=== PATIENT | male | born 2000 | race Caucasian/White ===

== ENCOUNTER 2023-10-10 06:47 | Emergency (ER) | payer SELFPAY ==
[2023-10-10 06:50] VITALS: BP 139/91
[2023-10-10 07:46] LABS: COVID-19 Antigen Negative (Negative)
--- NOTE | 2023-10-10 08:21 | ED.GENMED ---
History of Present Illness
General
Chief Complaint: Cold/Flu/URI Symptoms
Source: patient
Exam Limitations: none
Time Seen by Provider: 10/10/23 08:11
Travel History
Have you had any contact with someone who has COVID-19?: No
Do you have any symptoms of coronavirus? Fever > 100 degrees, chills, cough, shortness of breath, sore throat, loss of taste or smell, muscle aches, or headache?: Yes
Symptoms:: see above
History of Present Illness
History of Present Illness:
See MDM
Past History
Past History
ED Past Medical History: GERD and Psychiatric
ED Past Surgical History: Orthopedic
Social History
Tobacco: Non-smoker
Alcohol: None
Drug: None
Personal: Single
Living: with family
Phy Exam
Physical Exam
Physical Exam:
See MDM
Course
Orders/Labs/Results
Orders:
Orders
10/10/23 06:56
COVID-19 Antigen Urgent
Source: Nasal Swab
Influenza A+B Rapid Molecular Urgent
MERCEDES Source: Nasal Swab
Specimen Description:
10/10/23 08:21
Dexamethasone Pf [Decadron] 10 mg PO NOW STA
Ipratropium/Albuterol Sulfate [Duoneb] 3 ml INH R NOW ONE
CR Chest - 2 Views Urgent
Comment:
Reason For Exam: Cough, SOB
Vital Signs
Initial and Last Documented VS:
Initial Vital Signs
Temp Pulse Resp BP Pulse Ox
98.4 F 100 18 139/91 96
10/10/23 06:50 10/10/23 06:50 10/10/23 06:50 10/10/23 06:50 10/10/23 06:50
Last Documented Vital Signs
Temp Pulse Resp BP Pulse Ox
98.4 F 100 18 139/91 96
10/10/23 06:50 10/10/23 06:50 10/10/23 06:50 10/10/23 06:50 10/10/23 06:50
MDM/Problems Addressed
Differential Diagnosis Includes:
HPI and MDM Narrative:
23-year-old male presenting with congestion and cough. This has been going on for the past 5 days or so. 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 He denies fevers. Patient complaining of bilateral ear pain
that has been going on for months.
On exam, he is well-appearing nontoxic. There is a evidence of nasal congestion. We discussed not treating sinusitis with antibiotics. Lungs are clear. He appears to have a bronchospastic cough. Will give dose of Decadron and DuoNeb and will
obtain chest x-ray
Physical exam
General: Well appearing and non-toxic
HEENT: protecting airway. Nasal congestion. TMs clear bilaterally
Neck: supple
CV: No evidence of cyanosis. Regular rate and
Resp: No accessory muscle use. Lungs clear
Abd: Non-distended
Extremities: No deformities
Neuro: alert
Psych: Normal affect
Skin: Intact
Problems Addressed including Acute and Chronic Conditions affecting care:
1. Viral syndrome
Acuity: acute
Prognosis: stable
Details: Given duration of symptoms, will obtain chest x-ray. Patient given DuoNeb and Decadron
Updates
Chest x-ray clear. Will avoid antibiotics. Will place on steroids and albuterol
Differential Diagnosis (but not limited to): Sinusitis, viral syndrome, pneumonia
Testing considered: Viral panel
Drug therapy (if applicable): OTC meds, please see d/c instruction regarding Rx drugs
Amount and/or Complexity of Data Reviewed
Clinical info obtained from: Patient
External data reviewed: N/A
Labs I independently reviewed (but not limited to): COVID and flu negative
Radiology: x-ray independently reviewed: Chest x-ray clear
Pulse Ox: not hypoxic
EKG independently reviewed: N/A
Business Office Representative: N/A
Critical Care: N/A
Risk of Complication:
Social Determinants of health: Good social support
Discussed with other providers: N/A
Escalation of Care includes Admit/Obs: After being observed in the Emergency Department, pt stable for discharge.
Occasional wrong word or 'sound a like' substitutions may have occurred due to the inherent limitations of voice recognition software. Read the chart carefully and recognize, using context, where substitutions have occurred.
*Critical Care Note
Total Time (30-74mins, 75-104mins- exclusive of procedures): Not Applicable
ED Attending Note
-
Portions of this chart may have been created with voice recognition software.� Occasional wrong word or��sound alike� substitutions may have occurred due to the inherent limitations of voice recognition software.
Discharge Plan
Departure
Patient Disposition: Home (Routine Discharge)
Date of Disposition: 10/10/23
Time of Disposition: 09:30
Patient with high blood pressure during this ER visit?: No
Discharge Problem:
Acute viral syndrome
Instructions: Viral Syndrome (DC)
Prescriptions:
New
albuterol sulfate [ProAir HFA] 90 mcg/actuation Hfa Aerosol Inhaler
1 puff INHALATION Q4HPRN PRN (Reason: shortness of breath) Qty: 8.5 0RF
prednisone 20 mg tablet
40 mg PO DAILY Qty: 10 0RF
No Action
cyclobenzaprine 10 MG tablet
10 mg PO TIDPRN PRN (Reason: spasm) Qty: 9 0RF
prednisone 10 mg Tablet
See Rx Instructions .ROUTE .COMPLEX Qty: 45 0RF
Rx Instructions:
Take By Mouth:
50 mg daily x3 days, 40 mg daily x3 days,
30 mg daily x3 days, 20 mg daily x3 days,
10 mg daily x3 days
diphenhydramine HCl [Benadryl] 25 mg capsule
50 mg PO TID PRN (Reason: allergy symptoms) Qty: 15 0RF
Referrals:
Alexa Almodovar MD [Family Provider] -
Stand Alone Forms: Return to Work
Activity Restrictions/Additional Instructions:
Please return for any worsening symptoms.
You may return at any time if you have further concerns.
Please follow up with your doctor at the first available appointment, preferably this week.
Thank you for choosing [facility].
Interventions
Interventions:
ED- Pulmonary Assessment Last Done: 10/10/23 08:37
[2023-10-10] MEDS: DECADRON 10 MG PO (08:56)
[2023-10-10] MEDS: DUONEB 3 ML INH (08:57)
[2023-10-10 09:35] VITALS: BP 129/75
== END 2023-10-10 09:52 | disposition home or self-care (01) ==
LOC: EMR 06:47
PROVIDERS: Emergency Medicine; EMERGENCY PHYSICIAN Student in an Organized Health Care Education/Training Program; FAMILY PHYSICIAN Family Medicine
DX: B34.9 Viral infection, unspecified (principal); K21.9 Gastro-esophageal reflux disease without esophagitis
CPT/HCPCS: 99283; 71046; 87502; 87811

== ENCOUNTER 2023-10-13 17:58 | Emergency (ER) | payer SELFPAY ==
[2023-10-13 18:03] VITALS: BP 150/89
--- NOTE | 2023-10-13 18:43 | ED.GENMED ---
History of Present Illness
General
Chief Complaint: Cold/Flu/URI Symptoms
Source: patient
Exam Limitations: none
Time Seen by Provider: 10/13/23 18:34
Travel History
Have you had any contact with someone who has COVID-19?: No
Do you have any symptoms of coronavirus? Fever > 100 degrees, chills, cough, shortness of breath, sore throat, loss of taste or smell, muscle aches, or headache?: No
History of Present Illness
History of Present Illness:
This is a 23 year old male that comes in with c/o viral syndrome. States that he was here three days ago and diagnosed with a viral illness. States that he was given off form work until tomorrow. States that he is still not feeling better and that
his body hurts, he has a sore throat and he feels hot and cold. States that he feels slightly SOB, nausea has had diarrhea and a headache. Denies any fever, chills, chest pain, abd pain, vomiting, dizziness, urinary burning.
Past History
Past History
ED Past Medical History: GERD, Hypercholesterolemia, Psychiatric (Anxiety, Depression) and Other (IBS, )
ED Past Surgical History: Orthopedic (Foot surgery, ) and Tonsilectomy
Social History
Tobacco: Smoker
Alcohol: None
Drug: None
Personal: Single
Living: with family
Employment: Employed
Review of Systems
Review of Systems
All Other Systems: ROS reviewed and negative except as documented in HPI and ROS
Constitutional: Denies fever or chills
EENT: Reports sore throat
Respiratory: Reports trouble breathing (Very slight)
Cardiac: Reports no symptoms; Denies chest pain
ABD/GI: Reports nausea and diarrhea; Denies abdominal pain or vomiting
: Reports no symptoms; Denies dysuria, frequency or urgency
Musculoskeletal: Reports no symptoms
Skin: Reports no symptoms
Neurological: Reports headache; Denies dizzy
Psychiatric: Reports no symptoms
Phy Exam
General Physical Exam
General Presentation: well appearing and no apparent distress
General age: appears stated age
General Skin: warm and dry
General Habitus: normal
General Mental: alert
General Hydration: appears well hydrated
ENT Exam
ENT Exam: TM's normal, pharynx normal and neck supple
Eye Exam
Eye Exam: EOMI
Cardiovascular Exam
Cardiovascular Exam: regular rate/rhythm and no murmur
Pulmonary Exam
Pulmonary Exam: lungs clear, no respiratory distress, no rales, chest non tender, no crackles, no rhonchi, no wheezing and no cough
Musculoskeletal Exam
Musculoskeletal Exam: full ROM
Skin Exam
Skin Exam: normal color, warm/dry, no rash and no petechia
Psychiatric Exam
Psychiatric Exam: normal mood/affect
Course
Orders/Labs/Results
Orders:
Orders
10/13/23 19:14
Rapid Strep Group A Urgent
MERCEDES Source: Throat/Pharynx
Specimen Description:
Date Specimen was Collected: 10/13/23
Time Specimen was Collected: 19:12
rapid strep negative.
Vital Signs
Initial and Last Documented VS:
Initial Vital Signs
Temp Pulse Resp BP Pulse Ox
98.2 F 95 18 150/89 94
10/13/23 18:03 10/13/23 18:03 10/13/23 18:03 10/13/23 18:03 10/13/23 18:03
Last Documented Vital Signs
Temp Pulse Resp BP Pulse Ox
98.2 F 95 18 150/89 94
10/13/23 18:03 10/13/23 18:03 10/13/23 18:03 10/13/23 18:03 10/13/23 18:03
MDM/Problems Addressed
Differential Diagnosis Includes:
Viral syndrome
MDM/Problems Addressed:
This is a 23 year old male that comes in with c/o not feeling any better. States that he was here 3 days ago and diagnosed with a viral illness. 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 State that he is not feeling
any better. States that he has body aches and a sore throat.
Will get Rapid strep. Explained to patient that he was negative for COVID and influenza. Will give patient off tomorrow and the he should be feeling better. Patient to increase his water intake to 8-8oz glasses daily. Use Ibuprofen for any body
aches. Follow up with the family doctor.
Chronic conditions affecting care:
NA
Acute Exacerbation and/or Progression of Chronic Illness:
NA
*Pulse Oximetry
Patient hypoxic: no
*EKG
Interpreted by ED Provider?: NA
Rate: EKG- N/A
*Business Banker Interpretation
Rate: Business Banker- N/A
*Critical Care Note
Total Time (30-74mins, 75-104mins- exclusive of procedures): Not Applicable
ED Attending Note
-
Portions of this chart may have been created with voice recognition software.� Occasional wrong word or��sound alike� substitutions may have occurred due to the inherent limitations of voice recognition software.
Discharge Plan
Departure
Patient Disposition: Home (Routine Discharge)
Date of Disposition: 10/13/23
Time of Disposition: 19:43
Patient with high blood pressure during this ER visit?: Yes
Condition: Good
Covid-19: Not Applicable
Discharge Problem:
Viral illness
Instructions: Viral Syndrome (DC), BLOOD PRESSURE
Prescriptions:
No Action
cyclobenzaprine 10 MG tablet
10 mg PO TIDPRN PRN (Reason: spasm) Qty: 9 0RF
prednisone 10 mg Tablet
See Rx Instructions .ROUTE .COMPLEX Qty: 45 0RF
Rx Instructions:
Take By Mouth:
50 mg daily x3 days, 40 mg daily x3 days,
30 mg daily x3 days, 20 mg daily x3 days,
10 mg daily x3 days
diphenhydramine HCl [Benadryl] 25 mg capsule
50 mg PO TID PRN (Reason: allergy symptoms) Qty: 15 0RF
albuterol sulfate [ProAir HFA] 90 mcg/actuation Hfa Aerosol Inhaler
1 puff INHALATION Q4HPRN PRN (Reason: shortness of breath) Qty: 8.5 0RF
prednisone 20 mg tablet
40 mg PO DAILY Qty: 10 0RF
Stand Alone Forms: Return to Work
Activity Restrictions/Additional Instructions:
As discussed, please increase your water intake to 8-8oz glasses daily. You may use Ibuprofen 600mg every 6 hours with food for body aches. Please stay away from milk and milk products as long as you have diarrhea as this will keep the diarrhea
going. Simple foods that are easily digested ar chicken, rice and potatoes. Bananas are also binding. Follow up with the family doctor. IF YOU HAVE ANY OTHER CONCERNS [facility]
Interventions
Interventions:
*Risk Screen - Suicide Last Done: 10/13/23 18:36
*General Assessment Last Done: 10/13/23 18:36
*Neglect/Abuse Screening Last Done: 10/13/23 18:36
ED- Fall Risk Assessment Last Done: 10/13/23 18:36
*ED COVID-19 Vaccine History Last Done: 10/13/23 19:15
ED- Pulmonary Assessment Last Done: 10/13/23 18:36
[2023-10-13 20:05] VITALS: BP 134/85
== END 2023-10-13 20:05 | disposition home or self-care (01) ==
LOC: EMR 17:58
PROVIDERS: EMERGENCY PHYSICIAN Student in an Organized Health Care Education/Training Program; FAMILY PHYSICIAN Family Medicine
DX: B34.9 Viral infection, unspecified (principal); R51.9 Headache, unspecified; R11.0 Nausea; R19.7 Diarrhea, unspecified; R03.0 Elevated blood-pressure reading, without diagnosis of hypertension; K21.9 Gastro-esophageal reflux disease without esophagitis; E78.00 Pure hypercholesterolemia, unspecified; K58.9 Irritable bowel syndrome, unspecified; F41.9 Anxiety disorder, unspecified; F32.A Depression, unspecified; F17.200 Nicotine dependence, unspecified, uncomplicated
CPT/HCPCS: 99283; 87070; 87880

== ENCOUNTER 2024-01-01 05:58 | Emergency (ER) | payer SELFPAY ==
[2024-01-01 06:00] VITALS: BP 140/87
--- NOTE | 2024-01-01 06:30 | ED.GENMED ---
History of Present Illness
General
Chief Complaint: Ear Problem
Source: patient
Exam Limitations: none
Time Seen by Provider: 01/01/24 06:15
Nursing documentation reviewed up to this point in time: agreed with
Travel History
Have you had any contact with someone who has COVID-19?: No
Do you have any symptoms of coronavirus? Fever > 100 degrees, chills, cough, shortness of breath, sore throat, loss of taste or smell, muscle aches, or headache?: No
History of Present Illness
History of Present Illness:
23-year-old male presents with right ear pain with ringing for the last 3 days. He states that the pain has been waxing and waning. He reports that jaw movement exacerbates the symptoms. Rest alleviates them. Denies fever, chills, nausea or
vomiting. Reports no chest pain or shortness of breath. Denies any recent head trauma.
Past History
Past History
ED Past Medical History: GERD, Hypercholesterolemia, Psychiatric (Anxiety, Depression) and Other (IBS, )
ED Past Surgical History: Orthopedic (Foot surgery, ) and Tonsilectomy
Social History
Tobacco: Smoker
Alcohol: None
Drug: None
Personal: Single
Living: with family
Employment: Employed
Review of Systems
Review of Systems
Allergies reviewed?: Yes
All Other Systems: ROS reviewed and negative except as documented in HPI and ROS
Constitutional: Reports no symptoms
EENT: Reports other (Jaw pain)
Respiratory: Reports no symptoms
Cardiac: Reports no symptoms
ABD/GI: Reports no symptoms
: Reports no symptoms
Musculoskeletal: Reports no symptoms
Skin: Reports no symptoms
Neurological: Reports no symptoms
Endocrine: Reports no symptoms
Hematologic/Lymphatic: Reports no symptoms
Psychiatric: Reports no symptoms
Phy Exam
General Physical Exam
General Presentation: well appearing and no apparent distress
General Skin: warm and dry
General Habitus: normal
General Mental: alert
General Hydration: appears well hydrated
ENT Exam
ENT Exam: EOMI, neck supple and TM's abnormal (right ear erythema)
Additional ENT: jaw pain with downward pressure
Eye Exam
Eye Exam: PERRL, cornea clear and conjunctiva normal
Cardiovascular Exam
Cardiovascular Exam: regular rate/rhythm, no edema, no murmur and normal peripheral pulses
Pulmonary Exam
Pulmonary Exam: lungs clear and no respiratory distress
Gastrointestinal Exam
Gastrointestinal Exam: normal bowel sounds, non tender, soft, no organomegaly, no pulsatile mass and non distended
Neurological Exam
Neurological Exam: alert, oriented x3, no motor deficits and speech normal
Musculoskeletal Exam
Musculoskeletal Exam: full ROM and no edema
Skin Exam
Skin Exam: normal color, warm/dry, no rash and no petechia
Psychiatric Exam
Psychiatric Exam: normal mood/affect
Course
Orders/Labs/Results
Orders:
Orders
01/01/24 06:26
Dexamethasone Pf [Decadron] 10 mg PO NOW STA
01/01/24 06:29
Amoxicillin 875 mg/Clav 125 mg [Augmentin 875 mg/125 mg] 1 tablet PO NOW STA
Vital Signs
Initial and Last Documented VS:
Initial Vital Signs
Temp Pulse Resp BP Pulse Ox
99.1 F 86 20 140/87 97
01/01/24 06:00 01/01/24 06:00 01/01/24 06:00 01/01/24 06:00 01/01/24 06:00
Last Documented Vital Signs
Temp Pulse Resp BP Pulse Ox
99.1 F 86 20 140/87 97
01/01/24 06:00 01/01/24 06:00 01/01/24 06:00 01/01/24 06:00 01/01/24 06:00
*Pulse Oximetry
Patient hypoxic: no
*Critical Care Note
Total Time (30-74mins, 75-104mins- exclusive of procedures): Not Applicable
ED Attending Note
-
Portions of this chart may have been created with voice recognition software.� Occasional wrong word or��sound alike� substitutions may have occurred due to the inherent limitations of voice recognition software.
Discharge Plan
Departure
Patient Disposition: Home (Routine Discharge)
Date of Disposition: 01/01/24
Time of Disposition: 06:36
Patient with high blood pressure during this ER visit?: Yes
Discharge Problem:
Acute otitis media
Instructions: Serous Otitis Media (DC), BLOOD PRESSURE
Prescriptions:
New
amoxicillin-pot clavulanate 875-125 mg tablet
1 tab PO BID Qty: 14 0RF
No Action
famotidine 10 mg Tablet
10 mg PO BID
Referrals:
Sang Herbert MD [Active] -
Stand Alone Forms: Return to Work
Activity Restrictions/Additional Instructions:
It was a pleasure meeting you and taking part in your care. We hope for your continued healing and wellness.
Please read discharge instructions in their entirety. However, they are for general education and may not describe your exact diagnosis at discharge. Information on your ER visit and medical conditions were discussed with you along with appropriate
follow up information...
If indicated, please take your medications as instructed and indicated on discharge paperwork.
Please schedule a follow up appointment as directed. Call to schedule an appointment
Please return to the emergency department with ANY change in, persisting, or worsening of symptoms. If any of your symptoms do not improve, or persist, or become more severe within 6-12 hours, please return to the emergency department for further
care.
Please return to the emergency department if you develop a headache, neck pain/stiffness, fever greater than 100.4F, chest pain, shortness of breath, persistent nausea, vomiting, slurred speech, difficulty walking, numbness/tingling, weakness, signs
of infection or any other symptoms that are worrisome to you.
If you have any questions or concerns please do not hesitate to call the Hospital at or E-mail me directly at [email or web address]
Interventions
Interventions:
*Risk Screen - Suicide Last Done: 01/01/24 06:00
*General Assessment Last Done: 01/01/24 06:00
*Neglect/Abuse Screening Last Done: 01/01/24 06:00
ED- Fall Risk Assessment Last Done: 01/01/24 06:00
*ED COVID-19 Vaccine History Last Done: 01/01/24 06:00
*Nursing Disposition Last Done: 01/01/24 06:50
Discharge Date and Time
Discharge Date/Time: 01/01/24 06:50
Print Language: SERBIAN
[2024-01-01] MEDS: DECADRON 10 MG PO (06:47)
[2024-01-01] MEDS: AUGMENTIN 875 MG/125 MG 1 TABLET PO (06:47)
== END 2024-01-01 06:50 | disposition home or self-care (01) ==
LOC: EMR 05:58
PROVIDERS: EMERGENCY PHYSICIAN Student in an Organized Health Care Education/Training Program
DX: H66.90 Otitis media, unspecified, unspecified ear (principal); K21.9 Gastro-esophageal reflux disease without esophagitis; E78.00 Pure hypercholesterolemia, unspecified; F41.8 Other specified anxiety disorders; K58.9 Irritable bowel syndrome, unspecified; F17.200 Nicotine dependence, unspecified, uncomplicated
CPT/HCPCS: 99282

== ENCOUNTER 2024-03-27 13:13 | Emergency (ER) | payer SELFPAY ==
[2024-03-27 13:16] VITALS: BP 144/87; BMI 31.0
--- NOTE | 2024-03-27 15:38 | ED.GENMED ---
History of Present Illness
General
Chief Complaint: Skin Problem
Source: patient
Exam Limitations: none
Time Seen by Provider: 03/27/24 15:28
History of Present Illness
History of Present Illness:
23-year-old male presents with painful swallowing right large toenail progressive over the last 2 weeks. He states the toe swells more throughout the day he notes drainage. He denies fevers. He is not diabetic. No other complaints at this time.
Past History
Past History
ED Past Medical History: GERD, Hypercholesterolemia, Psychiatric (Anxiety, Depression) and Other (IBS, )
ED Past Surgical History: Orthopedic (Foot surgery, ) and Tonsilectomy
Social History
Tobacco: Smoker
Alcohol: None
Drug: None
Personal: Single
Living: with family
Employment: Employed
Phy Exam
Physical Exam
Physical Exam:
General: Well-appearing male no acute respiratory distress
HEENT: Normocephalic atraumatic
Skin: Erythema and fluctuance noted over the lateral aspect of the right large toenail. The toenail is ingrown. No lymphangitic streaking is tender to the touch
Extremities: No cyanosis
Course
Vital Signs
Initial and Last Documented VS:
Initial Vital Signs
Temp Pulse Resp BP Pulse Ox
97.6 F 90 16 144/87 98
03/27/24 13:16 03/27/24 13:16 03/27/24 13:16 03/27/24 13:16 03/27/24 13:16
Last Documented Vital Signs
Temp Pulse Resp BP Pulse Ox
97.6 F 90 16 144/87 98
03/27/24 13:16 03/27/24 13:16 03/27/24 13:16 03/27/24 13:16 03/27/24 13:16
MDM/Problems Addressed
Differential Diagnosis Includes:
Ingrown right large toenail laterally. Digital block was provided with 1% lidocaine and 0.5% Marcaine.
Once appropriate anesthesia is obtained, the ingrown toenail will be excised
*Critical Care Note
Total Time (30-74mins, 75-104mins- exclusive of procedures): Not Applicable
Update Note
Update Note:
The lateral edge of the nail was excised using a pair scissors and the ingrown portion of the nail was removed using a pair needle drivers. The wound was then irrigated with saline and wrapped with a sterile gauze dressing. Patient started on
Keflex. Stable for discharge
ED Attending Note
-
Portions of this chart may have been created with voice recognition software.� Occasional wrong word or��sound alike� substitutions may have occurred due to the inherent limitations of voice recognition software.
Discharge Plan
Departure
Patient Disposition: Home (Routine Discharge)
Date of Disposition: 03/27/24
Time of Disposition: 16:23
Patient with high blood pressure during this ER visit?: No
Discharge Problem:
Ingrown toenail
Instructions: Cellulitis (Skin Infection), Adult (DC)
Prescriptions:
New
cephalexin 500 mg capsule
500 mg PO Q8H 7 Days Qty: 21 0RF
No Action
famotidine 10 mg Tablet
10 mg PO BID
amoxicillin-pot clavulanate 875-125 mg tablet
1 tab PO BID Qty: 14 0RF
Referrals:
NONE,* [Family Provider] -
Stand Alone Forms: Return to Work
Activity Restrictions/Additional Instructions:
Continue with warm soaks. Take antibiotics as directed. Return if worse otherwise follow-up with your foot doctor
Interventions
Interventions:
*Risk Screen - Suicide Last Done: 03/27/24 13:16
*Neglect/Abuse Screening Last Done: 03/27/24 13:16
ED- Fall Risk Assessment Last Done: 03/27/24 13:16
ED-Skin Assessment Last Done: 03/27/24 15:19
Discharge Date and Time
Print Language: CENTRAL AFRICAN
[2024-03-27 16:37] VITALS: BP 139/78
== END 2024-03-27 16:40 | disposition home or self-care (01) ==
LOC: EMR 13:13
PROVIDERS: EMERGENCY PHYSICIAN Emergency Medicine
DX: L60.0 Ingrowing nail (principal); F17.200 Nicotine dependence, unspecified, uncomplicated
CPT/HCPCS: 64450; 99284

== ENCOUNTER 2024-04-06 14:39 | Emergency (ER) | payer OTHER, SELFPAY ==
[2024-04-06 14:42] VITALS: BP 136/83
--- NOTE | 2024-04-06 15:06 | ED.GENMED ---
History of Present Illness
General
Chief Complaint: Head Injury
Source: patient
Time Seen by Provider: 04/06/24 14:59
History of Present Illness
History of Present Illness:
23-year-old male presenting to the emergency department for evaluation after he accidentally slipped on some oil that was on the ground at work causing him to fall backwards and landing on his back/buttock and hitting the back of his head onto the
ground. Patient states he felt a little bit dazed afterwards and had a headache but states while he still has a headache it is much improved presently. Patient was seen at the [facility] urgent care but was directed to the ER to be further
evaluated due to his head injury. Patient denies loss consciousness, vomiting, visual disturbances, focal weakness or numbness or any other concerns. He does note a history of concussions while in high school due to playing football. No other
concerns at this time.
Past History
Past History
ED Past Medical History: GERD, Hypercholesterolemia, Psychiatric (Anxiety, Depression) and Other (IBS, )
ED Past Surgical History: Orthopedic (Foot surgery, ) and Tonsilectomy
Social History
Tobacco: Smoker
Alcohol: None
Drug: None
Personal: Single
Living: with family
Employment: Employed
Review of Systems
Review of Systems
All Other Systems: ROS reviewed and negative except as documented in HPI and ROS
Phy Exam
Physical Exam
Physical Exam:
GENERAL: Alert , in no apparent distress
EYE: conjunctiva clear, pupils 5 mm bilateral
Head: Normocephalic atraumatic, no contusions or ecchymosis
NECK: Supple, no midline tenderness
ENT: mmm.
LUNGS: no acute respiratory distress
NEUROLOGICAL: Alert and oriented
SKIN: Warm and dry, skin intact.
MUSCULOSKELETAL: well perfused.
PSYCH: Normal and appropriate interaction.
Scores
Heart Failure Risk
Heart Failure Risk Score: Not Applicable
Heart Score for Chest Pain Patients
STEMI patient?: Not applicable
Withdrawal Assessment of Alcohol
Withdrawal Assessment Completed?: Not applicable
Course
Vital Signs
Initial and Last Documented VS:
Initial Vital Signs
Temp Pulse Resp BP Pulse Ox
98.3 F 66 18 136/83 98
04/06/24 14:42 04/06/24 14:42 04/06/24 14:42 04/06/24 14:42 04/06/24 14:42
Last Documented Vital Signs
Temp Pulse Resp BP Pulse Ox
98.3 F 66 18 136/83 98
04/06/24 14:42 04/06/24 14:42 04/06/24 14:42 04/06/24 14:42 04/06/24 14:42
MDM/Problems Addressed
Differential Diagnosis Includes:
. Contusion, concussion, intracranial bleeding
MDM/Problems Addressed:
23-year-old male presenting to the emergency department for evaluation following head injury when he excellently slipped at work on some oil that was on the ground. Seen at urgent care but was recommended to come to the ER for further evaluation.
There was no loss consciousness, vomiting, vision disturbances, use of anticoagulants. Patient notes symptoms seem to be much improved presently. Feeling discussed risk versus benefit of CT imaging with patient and at this time patient would
prefer to defer CT scan. Discussed return precautions as well as follow-up recommendations. Stable for discharge home
*Pulse Oximetry
Patient hypoxic: no
*Critical Care Note
Total Time (30-74mins, 75-104mins- exclusive of procedures): Not Applicable
ED Attending Note
-
Portions of this chart may have been created with voice recognition software.� Occasional wrong word or��sound alike� substitutions may have occurred due to the inherent limitations of voice recognition software.
Discharge Plan
Departure
Patient Disposition: Home (Routine Discharge)
Date of Disposition: 04/06/24
Time of Disposition: 15:06
Patient with high blood pressure during this ER visit?: No
Discharge Problem:
Head injury
Instructions: Concussion, Adult (DC)
Prescriptions:
No Action
famotidine 10 mg Tablet
10 mg PO BID
amoxicillin-pot clavulanate 875-125 mg tablet
1 tab PO BID Qty: 14 0RF
cephalexin 500 mg capsule
500 mg PO Q8H 7 Days Qty: 21 0RF
Stand Alone Forms: Return to Work
Interventions
Interventions:
*Risk Screen - Suicide Last Done: 04/06/24 14:42
*General Assessment Last Done: 04/06/24 14:42
*Neglect/Abuse Screening Last Done: 04/06/24 14:42
*ED COVID-19 Vaccine History Last Done: 04/06/24 14:42
Discharge Date and Time
Print Language: ANGUILLAN
== END 2024-04-06 15:31 | disposition home or self-care (01) ==
LOC: EMR 14:39
PROVIDERS: EMERGENCY PHYSICIAN Student in an Organized Health Care Education/Training Program
DX: S09.90XA Unspecified injury of head, initial encounter (principal); R41.0 Disorientation, unspecified; R51.9 Headache, unspecified; W01.0XXA Fall on same level from slipping, tripping and stumbling without subsequent striking against object, initial encounter; Y93.89 Activity, other specified; Y92.89 Other specified places as the place of occurrence of the external cause; Y99.0 Civilian activity done for income or pay; K21.9 Gastro-esophageal reflux disease without esophagitis; F32.A Depression, unspecified; F41.9 Anxiety disorder, unspecified; K58.9 Irritable bowel syndrome, unspecified; E78.00 Pure hypercholesterolemia, unspecified; F17.200 Nicotine dependence, unspecified, uncomplicated
CPT/HCPCS: 99282

== ENCOUNTER 2024-04-08 15:10 | Emergency (ER) | payer SELFPAY ==
[2024-04-08 15:27] VITALS: BP 147/78
--- NOTE | 2024-04-08 15:56 | ED.GENMED ---
History of Present Illness
General
Chief Complaint: Head Injury
Source: patient and records
Time Seen by Provider: 04/08/24 15:47
History of Present Illness
History of Present Illness:
23-year-old male presenting to the emergency department at request of primary care provider for evaluation after being seen here 2 days ago following a head injury where he slipped on some oil on the ground while at work causing him to fall onto his
back/buttock as well as hitting the back of his head on the ground. Patient had continued mild headache and some neck discomfort and was referred back to the emergency department by his primary care provider for imaging. Patient states that his
work was concerned as well and would not let him come back to work until imaging was performed. Patient endorses continued mild headache and states phonophobic as well as movement makes his headache worse. He continues to deny any nausea or
vomiting, visual disturbances, focal weakness or numbness or any other concerns.
Past History
Past History
ED Past Medical History: GERD, Hypercholesterolemia, Psychiatric (Anxiety, Depression) and Other (IBS, )
ED Past Surgical History: Orthopedic (Foot surgery, ) and Tonsilectomy
Social History
Tobacco: Smoker
Alcohol: None
Drug: None
Personal: Single
Living: with family
Employment: Employed
Review of Systems
Review of Systems
All Other Systems: ROS reviewed and negative except as documented in HPI and ROS
Phy Exam
Physical Exam
Physical Exam:
GENERAL: Alert , in no apparent distress
EYE: conjunctiva clear
Head: Normocephalic atraumatic
NECK: Supple, no midline tenderness
ENT: mmm.
LUNGS: no acute respiratory distress
NEUROLOGICAL: Alert and oriented
SKIN: Warm and dry, skin intact.
MUSCULOSKELETAL: well perfused.
PSYCH: Normal and appropriate interaction.
Scores
Heart Failure Risk
Heart Failure Risk Score: Not Applicable
Heart Score for Chest Pain Patients
STEMI patient?: Not applicable
Withdrawal Assessment of Alcohol
Withdrawal Assessment Completed?: Not applicable
Course
Orders/Labs/Results
Orders:
Orders
04/08/24 15:47
CT Cervical Spine W/o Iv Contr Urgent
Comment:
Reason For Exam: fall 2 days ago, head/neck pain
04/08/24 15:48
CT Head W/o Iv Contrast Urgent
Comment:
Reason For Exam: fall 2 days ago, head injury, headache
Vital Signs
Initial and Last Documented VS:
Initial Vital Signs
Temp Pulse Resp BP Pulse Ox
98.2 F 81 18 147/78 96
04/08/24 15:27 04/08/24 15:27 04/08/24 15:27 04/08/24 15:27 04/08/24 15:27
Last Documented Vital Signs
Temp Pulse Resp BP Pulse Ox
98.2 F 81 18 147/78 96
04/08/24 15:27 04/08/24 15:27 04/08/24 15:27 04/08/24 15:27 04/08/24 15:27
MDM/Problems Addressed
Differential Diagnosis Includes:
concussion, whiplash/muscle spasm, contusion, ICH, c-spine fracture
MDM/Problems Addressed:
23-year-old male presenting to the emergency department for evaluation of persistent headache and some neck discomfort following an accidental slip and fall while at work 2 days ago. Patient with continued headache and generally feeling unwell and
was referred to the ER for neuroimaging by primary care provider. Patient in no acute distress. I suspect symptoms are most consistent with postconcussive syndrome. Given patient was referred directly to the ER for neuroimaging will obtain a CT
of the head and cervical spine. Patient declines any medications.
*Radiology
Radiology exam reviewed: radiology read reviewed
*Pulse Oximetry
Patient hypoxic: no
*Critical Care Note
Total Time (30-74mins, 75-104mins- exclusive of procedures): Not Applicable
Patient Management
Escalation/DeEscalation of care consider admission/obs:
Patient CAT scan unremarkable for any acute intracranial pathology. Stable for discharge home and continued outpatient follow-up. Continued concussion management discussed. Aware of return precautions.
ED Attending Note
-
Portions of this chart may have been created with voice recognition software.� Occasional wrong word or��sound alike� substitutions may have occurred due to the inherent limitations of voice recognition software.
Discharge Plan
Departure
Patient Disposition: Home (Routine Discharge)
Date of Disposition: 04/08/24
Time of Disposition: 17:33
Patient with high blood pressure during this ER visit?: Yes
Discharge Problem:
Concussion
Instructions: Concussion, Adult (DC)
Prescriptions:
No Action
famotidine 10 mg Tablet
10 mg PO BID
amoxicillin-pot clavulanate 875-125 mg tablet
1 tab PO BID Qty: 14 0RF
cephalexin 500 mg capsule
500 mg PO Q8H 7 Days Qty: 21 0RF
Referrals:
NONE,* [Family Provider] -
Interventions
Interventions:
*Risk Screen - Suicide Last Done: 04/08/24 15:27
*General Assessment Last Done: 04/08/24 15:27
*Neglect/Abuse Screening Last Done: 04/08/24 15:27
ED- Fall Risk Assessment Last Done: 04/08/24 16:42
*ED COVID-19 Vaccine History Last Done: 04/08/24 16:41
ED- Neurological Assessment Last Done: 04/08/24 16:42
Discharge Date and Time
Print Language: NORWEGIAN
[2024-04-08 16:40] VITALS: BMI 35.4
[2024-04-08 18:31] VITALS: BP 138/76
== END 2024-04-08 18:32 | disposition home or self-care (01) ==
LOC: EMR 15:10
PROVIDERS: EMERGENCY PHYSICIAN Emergency Medicine
DX: S06.0X0A Concussion without loss of consciousness, initial encounter (principal); R51.9 Headache, unspecified; W01.0XXA Fall on same level from slipping, tripping and stumbling without subsequent striking against object, initial encounter; Y93.89 Activity, other specified; Y92.89 Other specified places as the place of occurrence of the external cause; Y99.0 Civilian activity done for income or pay; R03.0 Elevated blood-pressure reading, without diagnosis of hypertension; K21.9 Gastro-esophageal reflux disease without esophagitis; E78.00 Pure hypercholesterolemia, unspecified; F41.9 Anxiety disorder, unspecified; F32.A Depression, unspecified; K58.9 Irritable bowel syndrome, unspecified; F17.200 Nicotine dependence, unspecified, uncomplicated
CPT/HCPCS: 99284; 70450; 72125